=== PATIENT | female | born 1985 | race Two or more races ===

== ENCOUNTER 2024-06-09 15:07 | Inpatient (IN) | payer MEDICAID, SELFPAY ==
[2024-06-09 15:08] VITALS: BMI 29.8
[2024-06-09 15:53] VITALS: BP 130/75; PULSE 100; RESP 18; TEMP 36.9; O2SAT 98
--- NOTE | 2024-06-09 16:08 | XR_ITS ---
EXAMINATION: US venous doppler LE LT HISTORY: r/o dvt COMPARISON: None. FINDINGS: Dutton scale, color doppler, and spectral waveforms of the bilateral lower extremity veins. The imaged veins are unremarkable without evidence of internal thrombus. Spectral Doppler imaging demonstrates normal wave forms. Prominent left inguinal lymph nodes, not pathologically enlarged by imaging criteria with preservation normal fatty shawn. IMPRESSION: Negative for deep venous thrombosis.
--- NOTE | 2024-06-09 16:08 | XR_ITS ---
Examination: Foot, left, 3 views Technique: AP, oblique, lateral views foot, 3 views Date and time of exam: June 09, 2024 1730 hrs. Indications: Redness swelling and pain involving the foot this week Findings: Suspicious for cortical bone destruction ungual tuft tip distal phalanx first digit Soft tissue swelling No fracture Impression: Osteomyelitis ungual tuft tip distal phalanx first digit, consider MRI foot without contrast follow-up
--- NOTE | 2024-06-09 16:09 | PD.EDRME ---
Rapid Medical Screening Exam RME Arrival date/time: 06/09/24 15:07 39-year-old female presents emergency department today sent by PCP to rule osteomyelitis Chief Complaint: Wound/Laceration Vital signs: Vital Signs Temperature 98.4 F 06/09/24 15:53 Pulse Rate 100 06/09/24 15:53 Respiratory Rate 18 06/09/24 15:53 Blood Pressure 130/75 06/09/24 15:53 Pulse Oximetry (%) 98 06/09/24 15:53 Oxygen Delivery Method Room Air 06/09/24 15:53
[2024-06-09 16:42] LABS: Lactate (Lactic Acid) 1.5 mMol/L (0.4-2.0)
[2024-06-09 16:47] LABS: Basophils % (Auto) 0 % (0-2.5); Eosinophils # (Auto) 0.1 Thou/mm3 (0.0-0.5); Eosinophils % (Auto) 1 % (0-10); Hematocrit 26.8 % (36.0-46.0); Immature Granulocytes % (Auto) 0 % (0-0); Immature Granulocytes Auto 0.02 Thou/mm3 (0.00-0.00); Lymphocytes # (Auto) 1.8 Thou/mm3 (1.0-4.8); Lymphocytes % (Auto) 25 % (10-50); Mean Corpuscular HGB Conc 26.1 g/dl (31.0-37.0); Mean Corpuscular Hemoglobin 15.7 pg (25.0-35.0); Mean Corpuscular Volume 60 fL (80-100); Monocytes # (Auto) 0.3 Thou/mm3 (0.0-0.8); Monocytes % (Auto) 4 % (0-12); Neutrophils # (Auto) 5.1 Thou/mm3 (1.8-7.7); Neutrophils % (Auto) 70 % (37-80); Nucleated Red Blood Cell % 0 /100 WBC (0); Platelet Count 311 Thou/mm3 (140-440); RDW Standard Deviation 42.4 fL (36.4-46.3); Red Blood Count 4.46 Miln/mm3 (4.00-5.20); White Blood Count 7.4 Thou/mm3 (3.6-11.0)
[2024-06-09 16:58] LABS: Sed Rate (ESR) 63 mm/hr (0-20)
[2024-06-09 16:59] LABS: Prothrombin Time 10.6 Seconds (9.0-12.2)
[2024-06-09 17:02] LABS: HCG,Qualitative Serum Negative
[2024-06-09 17:08] LABS: Collection Type, Urine Clean Catch
[2024-06-09 17:12] LABS: Alanine Aminotransferase 9 U/L (10-49); Albumin, Serum 4.5 gm/dL (3.5-5.0); Albumin/Globulin Ratio 1.2 (1.2-2.2); Alkaline Phosphatase 107 U/L (46-116); Anion Gap 8 (7-16); Aspartate Amino Transferase < 10 U/L (0-34); BUN/Creatinine Ratio 17 Ratio (12-20); Bilirubin,Total 0.6 mg/dL (0.3-1.2); Blood Urea Nitrogen 10 mg/dL (9-23); C-Reactive Protein 4.1 mg/dL (0.0-0.9); Calcium 9.5 mg/dL (8.3-10.6); Calcium (Corrected) 9.5 mg/dL (8.5-10.1); Carbon Dioxide 24.4 mMol/L (20.0-31.0); Chloride 102 mMol/L (98-107); Creatinine (Component) 0.6 mg/dL (0.6-1.3); Estimated Creatinine Clearance 150.3 mL/min (>60); Globulin 3.8 gm/dL (2.3-3.5); Glucose 364 mg/dL (74-106); Glucose Estimated Average 240 mg/dL (80-131); Osmolality,Calculated 282 (275-295); Potassium 3.8 mMol/L (3.4-5.1); Procalcitonin 0.11 ng/ml (0.0-0.49); Sodium 134 mMol/L (136-145); Total Protein 8.3 gm/dL (5.7-8.2); eGFR > 60 See Note
[2024-06-09 17:37] LABS: Bilirubin,Urine Negative (Negative); Blood,Urine 2+ (Negative); Budding Yeast,Urine Present; Clarity,Urine Clear (Clear/Hazy); Color,Urine Lt-Yellow (Lt Yel-Yel); Culture Indicated,Urine Not Indicated; Glucose, Urine 4+ (Negative); Ketones,Urine 1+ (Negative); Leukocyte Esterase,Urine Negative (Negative); Nitrite,Urine Negative (Negative); Protein,Urine Negative (Neg - Trace); RBC,Urine 2 /hpf (0-3); Specific Gravity,Urine 1.037 (1.001-1.035); Squamous Epithelial Cell,Urine 1 /hpf (0-5); Urobilinogen,Urine Negative mg/dL (0.0-1.0); WBC,Urine < 1 /hpf (0-5)
[2024-06-09 18:01] LABS: Path Review Blood Smear Sent to Pathologist
[2024-06-09 18:53] VITALS: BP 133/76; PULSE 88; RESP 17; TEMP 37.3; O2SAT 100
[2024-06-09 21:24] LABS: Ferritin 2 ng/mL (7.3-270.7); Iron 13 mcg/dL (50-170); Percent Iron Saturation 2 % (20-55); Total Iron Binding Capacity 438 mcg/dL (250-425); Unsaturated Iron Binding 425 (225-295)
--- NOTE | 2024-06-09 21:47 | EDNOTE_ITS ---
ED Wound/Laceration-RME/HPI General Chief Complaint: Wound/Laceration Stated Complaint: SENT BY [facility] TO R/O OSTEOMYELITIS Time Seen by Provider: 06/09/24 22:06 Source: patient Arrival date/time: 06/09/24 15:07 Mode of arrival: ambulatory Limitations: no limitations RME / HPI RME / HPI narrative: 06/09/24 15:07 39-year-old female presents emergency department today sent by PCP to rule osteomyelitis. Dr. Lim?s Main ED Evaluation: 39-year-old female presents to the ED, referred by her PCP at [facility] for evaluation of a left foot wound to rule out osteomyelitis. Symptoms began three days ago, with worsening pain affecting her ability to walk. She describes the pain as severe, throbbing, and rated 10/10. Patient denies fevers. Related Data Previous Rx's ?Medication ?Instructions ?Recorded ibuprofen 600 mg tablet 600 mg PO Q6HR PRN PAIN #30 tabs 07/31/16 hydrocodone 5 mg-acetaminophen 325 1 tab PO Q8H PRN pa in #7 tabs 04/30/20 mg tablet (Dwarf) hydrocodone 5 mg-acetaminophen 325 1 tab PO Q8H PRN pa in #7 tabs 04/30/20 mg tablet (Dwarf) cyclobenzaprine 10 mg tablet 10 mg PO TID PRN muscle s pasm #30 01/29/21 tabs tramadol 50 mg tablet 50 mg PO TID PRN pain #21 ta bs 01/29/21 fluconazole 150 mg tablet 150 mg PO Q3D 2 doses #2 tab s 01/22/23 Allergies Allergy/AdvReac Type Severity Reaction Status Date / Time No Known Allergies Allergy Verified 06/09/24 15:08 Review of Systems Review of Systems Systems Reviewed: All systems reviewed, normal except as documented Past Medical History Past Medical History NEUROLOGIC: Negative Neurological Disorders or Seizures CARDIAC: Negative Cardiac Disorders or Congestive Heart Failure RESPIRATORY: Negative Chronic Obstructive Pulmonary Disease (COPD) GASTROINTESTINAL: Negative Gastrointestinal Disorders GENITOURINARY: Negative Genitourinary Disorders or Renal Disease REPRODUCTIVE: Positive Genital Herpes (doesn't take any meds) and Previous Pregnancies MUSCULOSKELETAL: Negative Musculoskeletal Disorders ENDOCRINE: Positive Diabetes Mellitus Type 1; Negative Diabetes Mellitus Type 2 HEMATOLOGIC: Negative Blood Disorders PSYCHO/SOCIAL: Positive Depression (doesn't remember name of prescribed med) and Depression (with both pregnancies) OTHER HISTORY: Negative Autoimmune Disease, Blood Transfusions, Blood Transfusion Reaction, Anesthesia Reactions, MRSA, Clostridium Difficile or Cancer Family History FAMILY HISTORY: Negative Family Psychiatric Problems, Family Respiratory Disorders, Family Cardiac Disorders, Family Gastrointestinal Problems, Family Cancer, Family Surgery or Family Anesthesia Reaction Surgical History SURGICAL: Positive Section; Negative Cardiac Surgery, Endocrine Surgery, Ear Surgery, Nephrectomy, Joint Replacement, Neurologic Surgery or Mastectomy Social History SMOKING STATUS: Never smoker SECOND HAND EXPOSURE: No ED Exam Narrative Physical exam: GENERAL: In general the patient is awake, interactive, in an emergency department gurney. HEAD/EYES/EARS/NOSE/THROAT: normo-cephalic, atraumatic, mucus membranes are moist. No cervical tenderness palpation midline. Supple neck. CARDIOVASCULAR: regular rate and regular rhythm, no murmurs, heart sounds are not distant, strong pulses in all four extremities that are equal and symmetric bilateral upper and lower extremities, normal capillary refill. CHEST/PULMONARY: normal chest rise and fall, good air movement, clear to auscultation bilaterally, normal inspiratory to expiratory ratios without evidence of respiratory distress. ABDOMEN: soft, not tender, no masses appreciated BACK: normal range of motion without pain. NEUROLOGICAL: cranio-facial features are symmetric, moves all four extremities equally without obvious limitations or weakness. EXTREMITY: first three digits of the left foot are swollen, primarily on the plantar side. 3x3 cm open lesion is present on the first toe. blisters are noted on the second and third toes, which are warm to the touch. erythema extending to the midfoot. lymphedema is also present. SKIN: warm, dry, well-perfused, no jaundice, no rash, no telangiectasias or petechia. PSYCH: calm, cooperative, no evidence of psychosis or agitation General Limitations: Present no limitations Course Quality Measures none Orders Category Date Time Status US venous doppler LE LT Stat Exams 06/09/24 16:08 Completed XR foot comp LT min 3V Stat Exams 06/09/24 16:08 Completed A1C [Glycohemoglobin w (eAG)] Stat Lab 06/09/24 16:28 Completed Blood Culture (Lab) Stat Lab 06/09/24 16:28 Received CBC Stat Lab 06/09/24 16:28 Completed CMP [Comprehensive Metabolic Panel] Stat Lab 06/09/24 16:28 Completed CRP [C-Reactive Protein] Stat Lab 06/09/24 16:28 Completed ESR [Sed Rate (ESR)] Stat Lab 06/09/24 16:28 Completed Ferritin Stat Lab 06/09/24 18:00 Completed HCG,Qualitative Serum Stat Lab 06/09/24 16:28 Completed Iron Panel Stat Lab 06/09/24 18:00 Completed Lactic Acid [Lactate (Lactic Acid)] Stat Lab 06/09/24 16:28 Completed PT [Prothrombin Time with INR] Stat Lab 06/09/24 16:28 Completed Path Review Blood Smear Stat Lab 06/09/24 16:28 Completed Procalcitonin Stat Lab 06/09/24 16:28 Completed Type and Screen Stat Lab 06/09/24 18:00 Completed UA, C/S IF [Urinalysis, C/S if Indicated] Stat Lab 06/09/24 16:55 Completed Insulin Regular Med 06/09/24 23:16 Discontinued 10 unit IV X1 ONE Potassium Chloride [K-Dur] Med 06/09/24 23:16 Discontinued 40 meq PO X1 ONE Vital Signs Vital signs: Vital Signs Temperature 98.4 F 06/09/24 15:53 Pulse Rate 100 06/09/24 15:53 Respiratory Rate 18 06/09/24 15:53 Blood Pressure 130/75 06/09/24 15:53 Pulse Oximetry (%) 98 06/09/24 15:53 Oxygen Delivery Method Room Air 06/09/24 15:53 Wound / Laceration MDM Narrative MDM Narrative:: 39-year-old female with history of diabetes type 2, with worsening left cellulitis with lymphangitis in the last 24 hours. Exam shows diabetic foot ulcer. Patient does not meet sepsis criteria at this time. Likely as early osteo based on x-ray however at this time the patient definitely has cellulitis of the first 3 toes with diabetic foot ulcer on the first digit with lymphangitis. Scribe Attestation: I, Kosta Hua, am scribing for and in the presence of Dr. Lim. Provider Notation: Although this document has been carefully reviewed, there may still be some phonetic and other typographical errors. These errors are purely grammatical due to imperfections in the software program and should not be construed in any way to compromise the substance of the patient's medical care during this visit. 2300: Hospitalist made aware of the patient?s HPI, PMHx, lab and/or radiology results. Discussed treatment plan. Accepts patient for admission. Scribe Attestation: I, Kosta Hua, am scribing for and in the presence of Dr. Lim. Patient data External records reviewed:: [facility] previous records Clinical information provided by:: patient Social determinants that could affect healthcare access:: none Patient has the following chronic illnesses:: see PMH, if any How is presenting disease/condition affected by chronic disease/condition?: uneffected by Evaluation data The following diagnostics were reviewed and interpreted by me:: lab results and radiology exam(s) Lab and/or radiology exams considered but not ordered:: na Interpretation Summary: I personally reviewed the radiology data and agree with the radiologist's interpretation. Examination: Foot, left, 3 views Technique: AP, oblique, lateral views foot, 3 views Date and time of exam: June 09, 2024 1730 hrs. Indications: Redness swelling and pain involving the foot this week Findings: Suspicious for cortical bone destruction ungual tuft tip distal phalanx first digit Soft tissue swelling No fracture Impression: Osteomyelitis ungual tuft tip distal phalanx first digit, consider MRI foot without contrast follow-up Dictated By: Etienne Martell MD EXAMINATION: US venous doppler LE LT HISTORY: r/o dvt COMPARISON: None. FINDINGS: Dutton scale, color doppler, and spectral waveforms of the bilateral lower extremity veins. The imaged veins are unremarkable without evidence of internal thrombus. Spectral Doppler imaging demonstrates normal wave forms. Prominent left inguinal lymph nodes, not pathologically enlarged by imaging criteria with preservation normal fatty shawn. IMPRESSION: Negative for deep venous thrombosis. Dictated By: Tomas Madison MD Medications / Prescriptions Medications or Prescriptions considered but not ordered:: na Medication administrations:: Medication Administration History Acetaminophen (Acetaminophen 325 Mg Tablet) 650 mg PO Q6H PRN PRN Reason: Fever >100 or pain 1-3 Stop: 07/09/24 23:24 Dextrose (Dextrose 50%-Water Inj 50 Ml Syringe) 25 ml IV Q15MIN PRN PRN Reason: BG 50-70 responsive npo pt Stop: 07/09/24 23:24 Dextrose (Dextrose 50%-Water Inj 50 Ml Syringe) 50 ml IV Q15MIN PRN PRN Reason: BG <50 OR BG <70 & pt unresponsive Stop: 07/09/24 23:24 Glucagon (Glucagon Inj 1 Mg Vial) 1 mg IM Q15MIN PRN PRN Reason: BG <70, and no IV access Cefepime HCl 2 gm/ Sodium (Chloride) 50 mls @ 100 mls/hr IV Q8HR [facility] Stop: 06/16/24 23:28 Doxycycline Hyclate 100 mg/ (Sodium Chloride) 100 mls @ 100 mls/hr IV BID [facility] Stop: 06/16/24 23:29 Doxycycline Hyclate 100 mg/ (Sodium Chloride) 100 mls @ 100 mls/hr IV X1 ONE Stop: 06/10/24 00:44 Last Admin: 06/09/24 23:54 Dose: 100 mls/hr Documented By: JANNA Sodium Chloride (Ns) 1,000 mls @ 999 mls/hr IV .Q1H1M ONE Stop: 06/10/24 00:50 Last Admin: 06/09/24 23:56 Dose: 999 mls/hr Documented By: JANNA Insulin Human Lispro (Insulin Lispro (Admelog) 1 Unit/0.01 Ml Unit) 0 unit SC AC [facility]; Protocol Stop: 07/10/24 07:29 Ondansetron HCl (Ondansetron Inj 2 Mg/Ml Inj 2 Ml) 4 mg IV Q6H PRN; Protocol PRN Reason: NAUSEA OR VOMITING Stop: 07/09/24 23:24 Discontinued Medications Cefepime HCl 2 gm/ Sodium (Chloride) 50 mls @ 100 mls/hr IV X1 ONE Stop: 06/10/24 00:14 Insulin Human Regular (Insulin Hum Regular 1 Unit/0.01 Ml (Per Unit)) 10 unit IV X1 ONE Stop: 06/09/24 23:17 Last Admin: 06/09/24 23:47 Dose: 10 unit Documented By: JANNA Co-signed By: NIURKA Potassium Chloride (Potassium Chloride 20 Meq Tabcr) 40 meq PO X1 ONE Stop: 06/09/24 23:17 Last Admin: 06/09/24 23:48 Dose: 40 meq Documented By: JANNA as above, if any Consultations Consultation(s) initiated? (list below): Yes Consultation #1 (Physician, Specialty, Details): see narrative Diagnosis Wound Differential Diagnosis: abscess and other (foot ulcer, celllulitis, osteomyelitis) Most likely diagnosis given after review of the tests above:: Diabetes, Cellulitis, Diabetic foot ulcer Admission Indicated Admission indicated?: indicated Admission Request Was there a request for admission?: Yes Admission Attestation Admission request attestation: Discussed case with [] from Hospitalist service regarding admission. Discussed patients ED course, exam findings, labs, and radiology results. The Hospitalist [agrees,declines] to accept the patient for admission. Resident made aware that they will need to consult Dr. Rowland during the day tomorrow for consult, if needed. Disposition Plan Disposition Plan: Admit Discharge Plan Plan Patient Disposition: Admit Acute Care w/in Hospital Patient condition on transfer: Stable Problem List Clinical Impression: Diabetes, Cellulitis, Diabetic foot ulcer, Lymphangitis, Iron deficiency anemia
[2024-06-09 23:08] VITALS: BP 144/83; PULSE 102; RESP 18; TEMP 36.8; O2SAT 100
--- NOTE | 2024-06-09 23:33 | ESHP_ITS ---
<Statement entered by Saloni Melara MD - 06/11/24 05:43> I reviewed above note and agree with findings and plans. I have also personally examined the patient with medicine team and went over assessment and plan with medical team including buyer intern and resident physician. Documentation for date of: 06/09/24 HPI History of Present Illness History of present illness: Daysi is a 39 y/o female with PMHx of non-insulin dependent type II DM, HLD and depression who comes in for an evaulation of L foot pain, and swelling with no associated fever or chills. Patient reports is the first time that is happening. She reports that this swelling and pain has been going on for a week and has more located in her first couple of toes. She says that she noticed it while changing her sock. She says that she takes Ozempic and metformin for her diabetes, however she does not take Ozempic consistently because it gives her nausea and vomiting. She denies any chest pain, shortness of breath, nausea, vomiting, diarrhea currently. She says that she was diagnosed with diabetes mellitus when she was 23 years old. She denies being hospitalized in the past. she takes her medicines as prescribed, however she says she takes Zoloft inconsistently because it does not like the way it makes her feel. No other complaints at this time. ED course: Patient arrived to the ED with a temperature of 98.4, heart rate 100, respiratory rate 18, blood pressure 1 3/75, saturate 98% room air. Patient was worked and was found to have a sodium of 134, potassium 3.8, bicarb 24, BUN/creatinine of 10 and 0.6 respectively, glucose 264, white count 7.4, hemoglobin 7, ESR 63, CRP 4.1. Urinalysis showed +4 glucose, negative for leukocyte esterase or nitrates. Foot x-ray was done which showed osteomyelitis of the tip distal phalanx. seen and the medicine was consulted patient was made to the floors. PMHx: As above Surgical Hx: 3 C-sections Allergies: No known allergies Medicines: Ozempic (inconsistently), metformin 1000 mg twice daily, Zoloft (inconsistently) Family history: Family history significant for mother being on dialysis due to longstanding diabetes, and also diabetic retinopathy. Grandmother had a stroke. Social history: Born in [place], moved to [place] in 2006. Has worked in the [employer] ever since. Has 3 kids, single mom. Eats whatever she wants but mainly makes all her meals at home and eats at home and does not eat out. She eats a lot of tortillas, asada, chicken. 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 Smokes weed occasionally, no other smoking history. Has an occasional beer once a week. Review of Systems Review of Systems Narrative Review of Systems: Constitutional: No fever, chills, fatigue, weakness, weight loss HEENT: No eye pain, vision loss, ear pain, hearing loss, dysphagia, Cardiovascular: No chest pain, palpitations, edema, pain with walking Respiratory: No cough, shortness of breath, wheezing GI: No NVD, abdominal pain, constipation, blood in stool, loss of appetite, heartburn Extremities: + L foot swelling MSK: No back pain, joint pain, joint swelling, + L foot pain Neuro: No dizziness, numbness, weakness, headaches, seizures, tremors Psych: No anxiety, depression Exam Vital Signs Temp Pulse Resp BP Pulse Ox O2 Del Method 98.3 F 102 H 18 144/83 H 100 Room Air 06/09/24 23:08 06/09/24 23:08 06/09/24 23:08 06/09/24 23:08 06/09/24 23:08 06/09/24 23:08 Narrative Exam General: AAOx3, NAD, pleasant nearly obese female HEENT: Dry mucous membranes, conjunctiva clear, EOMI, PERRLA, Cardiovascular: S1, S2, radial pulses +2 bilat, RRR, patient near sternal notch Pulmonary: CTAB bilat no cough, no wheezing GI: No tenderness to light or deep palpitation, no guarding, rigidity, rebound tenderness or distension Extremities: No presence of trace or pitting edema in lower extremities bilaterally, dorsalis pedis pulses +2 bilaterally MSK: R foot ulceration on first toe with open wound, subcutaneous fat visible. Some possible blisters seen on second toe and 3rd toe Neuro: AAOx3, no focal motor or sensory deficits in the UE or LE bilat Psych: Good judgement, thought and behavior. Cooperative Results: Labs 06/09/24 16:28 06/09/24 16:28 Labs: Short CBC 03/09/25 Range/Units 16:28 WBC 7.4 (3.6-11.0) Thou/mm3 Hgb 7.0 L (12.0-16.0) g/dL Hct 26.8 L (36.0-46.0) % Plt Count 311 (140-440) Thou/mm3 BMP 06/09/24 16:28 Sodium 134 L Potassium 3.8 Chloride 102 Carbon Dioxide 24.4 BUN 10 Creatinine 0.6 Glucose 364 H Calcium 9.5 Liver Function 06/09/24 Range/Units 16:28 Total Bilirubin 0.6 (0.3-1.2) mg/dL AST < 10 (0-34) U/L ALT 9 L (10-49) U/L Alkaline Phosphatase 107 (46-116) U/L Albumin 4.5 (3.5-5.0) gm/dL Urine 06/09/24 Range/Units 16:55 Urine Color Lt-Yellow (Lt Yel-Yel) Urine Clarity Clear (Clear/Hazy) Urine pH 6.0 (5.0-7.0) Ur Specific [place] 1.037 H (1.001-1.035) Urine Protein Negative (Neg - Trace) Urine Glucose (UA) 4+ A (Negative) Quality Measures Quality Measures none Medications Home Medications and Allergies Allergies Allergy/AdvReac Type Severity Reaction Status Date / Time No Known Allergies Allergy Verified 06/09/24 15:08 Visit Medications Acetaminophen (Acetaminophen 325 Mg Tablet) 650 mg PO Q6H PRN PRN Reason: Fever >100 or pain 1-3 Stop: 07/09/24 23:24 Dextrose (Dextrose 50%-Water Inj 50 Ml Syringe) 25 ml IV Q15MIN PRN PRN Reason: BG 50-70 responsive npo pt Stop: 07/09/24 23:24 Dextrose (Dextrose 50%-Water Inj 50 Ml Syringe) 50 ml IV Q15MIN PRN PRN Reason: BG <50 OR BG <70 & pt unresponsive Stop: 07/09/24 23:24 Glucagon (Glucagon Inj 1 Mg Vial) 1 mg IM Q15MIN PRN PRN Reason: BG <70, and no IV access Cefepime HCl 2 gm/ Sodium (Chloride) 50 mls @ 100 mls/hr IV Q8HR [facility] Stop: 06/16/24 23:28 Doxycycline Hyclate 100 mg/ (Sodium Chloride) 100 mls @ 100 mls/hr IV BID [facility] Stop: 06/16/24 23:29 Insulin Human Lispro (Insulin Lispro (Admelog) 1 Unit/0.01 Ml Unit) 0 unit SC AC [facility]; Protocol Stop: 07/10/24 07:29 Ondansetron HCl (Ondansetron Inj 2 Mg/Ml Inj 2 Ml) 4 mg IV Q6H PRN; Protocol PRN Reason: NAUSEA OR VOMITING Stop: 07/09/24 23:24 Discontinued Medications Insulin Human Regular (Insulin Hum Regular 1 Unit/0.01 Ml (Per Unit)) 10 unit IV X1 ONE Stop: 06/09/24 23:17 Potassium Chloride (Potassium Chloride 20 Meq Tabcr) 40 meq PO X1 ONE Stop: 06/09/24 23:17 Assessment & Plan Plan Assessment Daysi is a 39 y/o female with PMHx of non-insulin dependent type II DM, HLD and depression who is admitted for diabetic foot ulcer and osteomyelitis #Diabetic foot ulcer #Osteomyelitis Foot ulcer likely secondary to uncontrolled diabetes Fingerstick in ER was 420 Anion gap of 8 A1c of 10 X-ray shows some osteomyelitis and distal first phalanx Will need further imaging for further workup ESR CRP elevated, 63 and 4.1 respectively Patient will need pseudomonal coverage Patient will likely need new regimen for diabetes management on discharge as patient has uncontrolled diabetes and is not compliant with current regimen Plan: ? General Surgery consulted, appreciate recs ? CT left foot with contrast ? Follow-up blood cultures ? Follow-up MRSA nares ? Cefepime 2 g IV every 12 hours ? Doxycycline 100 mg twice daily IV #[id number] type II diabetes mellitus Give 10 units of IV insulin in ER in addition to potassium load up Patient will likely need new regimen for diabetes management on discharge as patient has uncontrolled diabetes and is not compliant with current regimen +4 glucose in urine Plan: ? Sliding scale insulin ? Hypoglycemic protocol in place ? Blood sugar checks with meals ? Diabetic education ? Dietitian referral #Iron deficiency anemia MCV 60, Hgb 7 Iron 13 TIBC ~400s Ferritin 2 Iron is low in addition to iron stores and TIBC is high likely related to iron deficiency anemia Hold on giving blood transfusion at this point and will follow-up a.m. blood draw Patient would be a candidate for IV iron, however at this point will not give iron due to setting of infection Patient used to take iron a couple of times a day however stopped because of constipation Patient denies having any dark bowel movements Plan: ? Continue trend with CBC ? Follow-up peripheral blood smear ? Type and screen #Hematuria +2 blood on urine Plan: ? May need to repeat UA or follow-up outpatient #Depression Takes Zoloft inconsistently Patient educated on needing to take SSRIs consistently to show max benefit Patient does not want Zoloft at this time and will talk with PCP for further management Plan: ?Will hold on resuming home Zoloft #Health Maintenance Disposition: MedSurg DVT prophylaxis: SCDs GI prophylaxis: Protonix Diet: Carb low CODE STATUS: Full Patient seen and care discussed with my attending physician, Dr. Kelton Gould, PGY-1
[2024-06-09] MEDS: INSULIN HUM REGULAR 1 UNIT/0.01 ML (PER UNIT) 10 UNIT IV (23:47)
[2024-06-09] MEDS: POTASSIUM CHLORIDE 20 mEq TABCR 40 MEQ PO (23:48)
[2024-06-09] MEDS: DOXYCYCLINE INJ 100 MG in SODIUM CHLORIDE 0.9% (POP) 100 ML IV (23:54)
[2024-06-09] MEDS: SODIUM CHLORIDE 0.9% 1000 ML 1,000 ML 999 ML IV (23:56)
[2024-06-10] VITALS (15 sets, daily range): BP systolic 112–155; BP diastolic 61–98; PULSE 84–97; RESP 16–20; TEMP 35.8–37.1; O2SAT 95–99; BMI 30.2
--- NOTE | 2024-06-10 00:34 | XR_ITS ---
Examination: CT left foot, without contrast. 2-D sagittal reconstructions. 2-D coronal reconstructions. 3-D reconstructions. Date and time of exam:June 16, 2024 1923 hrs. Indications: Redness swelling and pain involving the foot this week CTDI: vol (mGy):3.32 DLP: (mGycm):114 Technique: Multiple 1.25 mm axial sections of the left foot have been obtained. 2-D sagittal and coronal reconstructions have been obtained. 3-D reconstructions have been obtained. Low dose protocols were performed. One or more of the following dose reduction techniques were used; automated exposure control, adjustment of the mA and/or KV according to patient size, use of iterative reconstruction technique. Findings: Soft tissue edema surrounding the foot Cortical bone destruction involving the ungual tuft tip distal phalanx first digit No fracture No foreign body Impression: Early osteomyelitis ungual tuft tip distal phalanx third digit
[2024-06-10] MEDS: CEFEPIME INJ 2 GM in SODIUM CHLORIDE 0.9% (Popper) 50 ML IV ×4 (00:55→21:54)
[2024-06-10 02:56] LABS: Amphetamine/Methamp Scrn,U Negative (Negative); Barbiturate Screen,Urine Negative (Negative); Benzodiazepines Screen,Urine Negative (Negative); Benzoylecgonine Screen, Ur Negative (Negative); Fentanyl Screen,Urine Negative (Negative); Opiate Screen,Urine Negative (Negative); THC Screen,Urine Negative (Negative)
[2024-06-10] MEDS: HYDROcodone/APAP 5/325 TABLET 1 TAB PO ×3 (03:42→22:08)
[2024-06-10 06:10] LABS: Basophils % (Auto) 0 % (0-2.5); Eosinophils # (Auto) 0.1 Thou/mm3 (0.0-0.5); Eosinophils % (Auto) 1 % (0-10); Hematocrit 21.6 % (36.0-46.0); Immature Granulocytes % (Auto) 0 % (0-0); Immature Granulocytes Auto 0.01 Thou/mm3 (0.00-0.00); Lymphocytes % (Auto) 34 % (10-50); Mean Corpuscular HGB Conc 26.4 g/dl (31.0-37.0); Mean Corpuscular Hemoglobin 16.2 pg (25.0-35.0); Mean Corpuscular Volume 61 fL (80-100); Monocytes # (Auto) 0.3 Thou/mm3 (0.0-0.8); Monocytes % (Auto) 5 % (0-12); Neutrophils # (Auto) 3.6 Thou/mm3 (1.8-7.7); Neutrophils % (Auto) 60 % (37-80); Nucleated Red Blood Cell % 0 /100 WBC (0); Platelet Count 263 Thou/mm3 (140-440); RDW Standard Deviation 43.3 fL (36.4-46.3); Red Blood Count 3.52 Miln/mm3 (4.00-5.20)
[2024-06-10 06:17] LABS: Partial Thromboplastin Time 24.4 Seconds (22.0-36.0); Prothrombin Time 11.4 Seconds (9.0-12.2)
[2024-06-10 06:30] LABS: Hemoglobin 5.7 g/dL (12.0-16.0)
[2024-06-10 07:11] LABS: Alanine Aminotransferase 9 U/L (10-49); Albumin, Serum 3.6 gm/dL (3.5-5.0); Albumin/Globulin Ratio 1.1 (1.2-2.2); Alkaline Phosphatase 68 U/L (46-116); Anion Gap 7 (7-16); Aspartate Amino Transferase < 10 U/L (0-34); BUN/Creatinine Ratio 16 Ratio (12-20); Bilirubin,Total 0.6 mg/dL (0.3-1.2); Blood Urea Nitrogen 8 mg/dL (9-23); Calcium 8.3 mg/dL (8.3-10.6); Calcium (Corrected) 8.6 mg/dL (8.5-10.1); Carbon Dioxide 24.3 mMol/L (20.0-31.0); Cardiac Risk Estimate 3.5 RATIO (3.7-5.6); Chloride 106 mMol/L (98-107); Cholesterol 97 mg/dL (132-200); Creatinine (Component) 0.5 mg/dL (0.6-1.3); Estimated Creatinine Clearance 181.3 mL/min (>60); Globulin 3.2 gm/dL (2.3-3.5); Glucose 309 mg/dL (74-106); HDL Cholesterol 28 mg/dL (40-60); LDL Cholesterol,Calculated 26 mg/dL (0-130); Magnesium 1.7 mg/dL (1.6-2.6); Osmolality,Calculated 284 (275-295); Phosphorous 3.1 mg/dL (2.4-5.1); Sodium 137 mMol/L (136-145); Thyroid Stimulating Hormone 1.55 uIU/mL (0.55-4.78); Total Protein 6.8 gm/dL (5.7-8.2); Triglycerides 217 mg/dL (30-150); eGFR > 60 See Note
[2024-06-10] MEDS: INSULIN LISPRO (AdmeLOG) 1 UNIT/0.01 ML UNIT SC ×3 (08:16→17:12)
[2024-06-10] MEDS: Magnesium Sulfate 4 GM Ivpb 4 GM/50 ML BAG IV (09:41)
[2024-06-10] MEDS: PANTOPRAZOLE INJ 40 MG VIAL IV (09:42)
[2024-06-10] MEDS: DOXYCYCLINE INJ 100 MG in SODIUM CHLORIDE 0.9% (POP) 100 ML IV (09:42)
--- NOTE | 2024-06-10 10:46 | XR_ITS ---
Examination: Pelvic ultrasound, transabdominal, complete Technique: Transabdominal ultrasound of the pelvis performed using grayscale imaging Date and time of exam: June 10, 2024 1223 hrs. Indications: Irregular heavy menses beginning several years ago Findings: Uterus 10.9 cm endometrial stripe 0.5 cm No uterine mass or intrauterine gestation Right ovary obscured by bowel gas Left ovary 4.2 cm arterial flow Impression: No uterine mass or intrauterine gestation
[2024-06-10] MEDS: Vancomycin Inj 1,000 MG, Vancomycin Inj 750 MG in SODIUM CHLORIDE 0.9% 500 ML 500 ML 171.429 MG IV (11:18)
[2024-06-10] MEDS: INSULIN LISPRO (AdmeLOG) 1 UNIT/0.01 ML UNIT 5 UNIT SC ×3 (12:06→17:13)
[2024-06-10 13:40] LABS: Creatinine MALB Rnd Ur 32 mg/dL (30-125); Microalbumin Creat Ratio 63 mg/gCrea (<30); Microalbumin, Random Urine 20 mg/L (0-300)
--- NOTE | 2024-06-10 14:25 | PC.WOUND ---
Assisted Dr. Rowland with bedside excision and debridment of left toes. Pt tolerated well, no bleeding after procedure. Orders received for wound care and [facility] as outpatient, nursing to reiterate adaptic dressings daily. Pt can be discharged when medically cleared per Dr. Rowland. See Wound RN notes.
--- NOTE | 2024-06-10 14:48 | PC.SS ---
Daysi Aguirre is a 39-year-old female admitted to Med-Surg for Osteomyelitis. SS conducted bedside contact with the patient to complete initial assessment and to discuss discharge planning.? Patient confirmed demographic information. Patient identifies her brother Dino Aguirre [phone] as her surrogate decision maker. Patient resides at home with kids. Pt states she is able to complete all ADL?s independently, no need for any source of DME. Pts PCP is Dr. Trujillo at [facility] and her pharmacy of choice is [facility]. DC options discussed, pt wishes to return home. Pts fam will provide transportation upon DC. No further intervention required at this time, social staff worker would be available to address any further concerns. DC Plan: Home Contact: BrotherDino [phone] PCP: Ronnie
--- NOTE | 2024-06-10 15:37 | ESCONSULT_ITS ---
HPI Consult details History of present illness: 39F with HLD, DMII (A1c 10) here for evaluation of foot pain. Pt reports she has noted swelling for the past week but then she developed pain, was seen at [facility] where she was advised to seek care in ER. Pt underwent foot xray showing osteomyelitis of the distal phalanx of the left foot digit PMH: HLD, DMII, anemia possibly related to menorrhagia PSHx: Csections Meds: ozempic, metformin Allergies: NKDA Social hx: Nonsmoker Review of Systems Review of Systems ROS Unobtainable: All systems reviewed & no additional complaints except as documented Meds Home Medications and Allergies Allergies Allergy/AdvReac Type Severity Reaction Status Date / Time No Known Allergies Allergy Verified 06/09/24 15:08 Exam Vital Signs Temp Pulse Resp BP Pulse Ox O2 Del Method 97.3 F 90 20 125/88 H 97 Room Air 06/10/24 14:45 06/10/24 14:45 06/10/24 14:45 06/10/24 14:45 06/10/24 14:32 06/10/24 12:00 Constitutional Constitutional: no acute distress Routine Respiratory Exam Respiratory: Present no resp distress Routine Extremities Exam Comments: Left foot warm, minimal erythema at the dorsum of foot which has apparently receded from previous markings. On the plantar surface of the 1st-3rd toes there are bullae, with some necrotic skin of the 1st and 2nd digits but no necrotic skin of the 3rd digit Results Results: Laboratory Laboratory results: results reviewed Results: Imaging Imaging narrative: Foot xray, venous doppler reviewed Assessment & Plan Plan 39F with HLD, DMII and anemia presenting with osteomyelitis of the left first toe with associated bullae. I explained that I can debride these wounds at bedside, and enumerated risks including pain, bleeding and worsening infection requiring toe amputations. Pt expressed understanding and agrees to proceed
--- NOTE | 2024-06-10 15:42 | ESOP_ITS ---
Procedures - Surgery Abscess I/D Site: foot Side (if applicable): left Sedation/analgesia: other ([place]) Technique: other (Excisional debridement of left first and second toe necrotic skin to level of subcutaneous tissue using scissors and a #15 blade. The bulla of the 3rd toe was incised with a #15 blade and drained clear fluid) Irrigation: No Packing used?: none Complications: other (Pt tolerated procedure well)
--- NOTE | 2024-06-10 16:09 | ESCONSULT_ITS ---
ELECTRIC POWER LINE REPAIRER HPI Data of Consult Requesting Physician: Rehan Izquierdo DO Primary Care Provider: Abelardo Trujillo MD Consult Narrative History of present illness: Daysi is a 39 y/o female with PMHx of non-insulin dependent type II DM, HLD, depression and menorrhagia with current hospitalization related to osteomyelitis of the left first toe, now s/p bedside debridement by Dr. Rowland this afternoon. She had initial Hgb of 7 yesterday afternoon, but this morning it fell to 5.7. Patient then endorsed that she is day 4 of her menses and her menses are very heavy normally. She has received 2u of pRBCs, follow up Hgb 8.4. She notes that she had menarche age 12 but then stopped having cycles until she turned 25 when she became sexually active. She states periods have been very heavy since 25. She has bleeding for 6 days, day 3 is heaviest where she will soak through a heavy pad in less than an hour. She passes large clots and has episodes of flooding. Has not seen OBGYN since soon after her 4 year old was born. She notes having an abnormal pap smear (and long-standing hx of HPV/abnormal paps) at that time and was supposed to have colposcopy procedure but did not. 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 PMHx: As above Surgical Hx: section x3 (with bilateral tubal ligation during 3rd ), left first toe debridement Allergies: NKDA Medicines: Ozempic (inconsistently), metformin 1000 mg twice daily, Zoloft (inconsistently) Family history: Family history significant for mother being on dialysis due to longstanding diabetes, and also diabetic retinopathy. Grandmother had a stroke. Social history: Born in [place], moved to [place] in 2006. Has worked in the [employer] ever since. Has 3 kids, single mom. 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 Smokes weed occasionally, no other smoking history. Has an occasional beer once a week. cc:: cc: Rehan Izquierdo DO Review of Systems Review of Systems Narrative Review of Systems: Review of Systems Systems Reviewed: All systems reviewed, normal except as documented Constitutional Constitutional: Denies body ache(s), Denies chills, Denies fever(s) and Denies headache(s) ENT Ears, Nose, Mouth, and Throat: Denies headache(s) and Denies vertigo Cardiovascular Cardiovascular: Denies chest pain, Denies palpitations, Denies dyspnea and Denies syncope Respiratory Respiratory: Denies cough, Denies dyspnea Gastrointestinal Gastrointestinal: Denies nausea and Denies vomiting Neurologic Neurologic: Denies convulsions, Denies headache(s), Denies other visual disturbances, Denies syncope and Denies vertigo Meds Home Medications and Allergies Allergies Allergy/AdvReac Type Severity Reaction Status Date / Time No Known Allergies Allergy Verified 06/09/24 15:08 Exam - ELECTRIC POWER LINE REPAIRER Vital Signs Temp Pulse Resp BP Pulse Ox O2 Del Method 97.3 F 90 20 125/88 H 97 Room Air 06/10/24 14:45 06/10/24 14:45 06/10/24 14:45 06/10/24 14:45 06/10/24 14:32 06/10/24 12:00 ELECTRIC POWER LINE REPAIRER - Results Labs 06/10/24 18:52 06/10/24 04:58 Labs: Short CBC 06/09/24 06/10/24 Range/Units 16:28 04:58 WBC 7.4 6.0 (3.6-11.0) Thou/mm3 Hgb 7.0 L 5.7 L* (12.0-16.0) g/dL Hct 26.8 L 21.6 L* (36.0-46.0) % Plt Count 311 263 D (140-440) Thou/mm3 BMP 06/09/24 06/10/24 16:28 04:58 Sodium 134 L 137 Potassium 3.8 4.0 Chloride 102 106 Carbon Dioxide 24.4 24.3 BUN 10 8 L Creatinine 0.6 0.5 L Glucose 364 H 309 H D Calcium 9.5 8.3 Liver Function 06/09/24 06/10/24 Range/Units 16:28 04:58 Total Bilirubin 0.6 0.6 (0.3-1.2) mg/dL AST < 10 < 10 (0-34) U/L ALT 9 L 9 L (10-49) U/L Alkaline Phosphatase 107 68 D (46-116) U/L Albumin 4.5 3.6 D (3.5-5.0) gm/dL Urine 06/09/24 Range/Units 16:55 Urine Color Lt-Yellow (Lt Yel-Yel) Urine Clarity Clear (Clear/Hazy) Urine pH 6.0 (5.0-7.0) Ur Specific [place] 1.037 H (1.001-1.035) Urine Protein Negative (Neg - Trace) Urine Glucose (UA) 4+ A (Negative) Impressions Impression: Patient: DAYSI PAIGE Attending Dr: Rehan Izquierdo DO Ordering Physician: Kenton Mc MD Date of Service: 06/10/24 Procedure(s): US pelvic complete Accession Number(s): [id number] cc: Abelardo Trujillo MD; Etienne Martell MD; Kenton Mc MD~ Examination: Pelvic ultrasound, transabdominal, complete Technique: Transabdominal ultrasound of the pelvis performed using grayscale imaging Date and time of exam: June 10, 2024 1223 hrs. Indications: Irregular heavy menses beginning several years ago Findings: Uterus 10.9 cm endometrial stripe 0.5 cm No uterine mass or intrauterine gestation Right ovary obscured by bowel gas Left ovary 4.2 cm arterial flow Impression: No uterine mass or intrauterine gestation Assessment and Plan Assessment and plan (1) Menorrhagia: Status: Acute Assessment and plan: Daysi is a 39 y/o female with PMHx of non-insulin dependent type II DM, HLD, depression and menorrhagia with current hospitalization related to osteomyelitis of the left first toe, now s/p bedside debridement by Dr. Rowland this afternoon. She had initial Hgb of 7 yesterday afternoon, but this morning it fell to 5.7. Patient then endorsed that she is day 4 of her menses and her menses are very heavy normally. She has received 2u of pRBCs, follow up Hgb 8.4. Normal pelvic ultrasound. Hx of abnormal pap smears/HPV with no appropriate follow up 3-4 years ago. Recommendations: -I had a long discussion with Daysi regarding the importance of following up with OBGYN outpatient for further workup of her menorrhagia with endometrial biopsy. Also with pap smear to follow up prior abnormal paps. Specifically discussed embx and pap are needed to ensure she does not have cervical or uterine pre-/cancer. I discussed with her options for treatment of menorrhagia after workup is completed such as OCP, Mirena IUD, endometrial ablation and hysterectomy. I discussed that she needs to seek treatment of her menorrhagia SANIYA or else she will likely end up needing more blood transfusions in the future. I provided her with Dr. Carly Rowe's office number to make an appointment to establish care: [phone]. -Discussed if she does want to pursue hysterectomy in the future, she needs to have really good glycemic control so she will have good healing -For now, Rx Lysteda (oral TXA) 1.3g PO TID for up to 5 days during monthly menstruation with 3 month supply to get her to her [employer] appt -Answered all questions to her apparent satisfaction (2) Iron deficiency anemia: Status: Acute (3) Diabetic foot ulcer: Status: Acute (4) Diabetes: Status: Acute (1) Menorrhagia Qualifiers: Menorrhagia type: with regular cycle Qualified Code(s): N92.0 - Excessive and frequent menstruation with regular cycle (2) Iron deficiency anemia Qualifiers: Iron deficiency anemia type: chronic blood loss Qualified Code(s): D50.0 - Iron deficiency anemia secondary to blood loss (chronic) (3) Diabetic foot ulcer Qualifiers: Diabetes mellitus type: type 2 Diabetic foot ulcer location: toe Laterality: left Non-pressure ulcer stage: with bone involvement without evidence of necrosis Qualified Code(s): E11.621 - Type 2 diabetes mellitus with foot ulcer; L97.526 - Non-pressure chronic ulcer of other part of left foot with bone involvement without evidence of necrosis (4) Diabetes Qualifiers: Diabetes mellitus complication detail: with foot ulcer Diabetes mellitus complication status: with skin complications Diabetes mellitus equipment operator intermodal yard insulin use: without assisted use Diabetes mellitus type: type 2 Qualified Code(s): E11.621 - Type 2 diabetes mellitus with foot ulcer; L97.509 - Non- pressure chronic ulcer of other part of unspecified foot with unspecified severity
--- NOTE | 2024-06-10 17:12 | ESPR_ITS ---
<Statement entered by Reinier Powell MD - 06/10/24 18:20> Patient was seen and examined by me personally. I agree with most of the assessment and plan as discussed with the internal grinder set up operator physician, and my attending, Dr. Izquierdo. Patient is a 39-year-old female with T2DM, HLD, depression who was admitted for diabetic foot ulcer and osteomyelitis of left foot, as seen on x-ray. ESR and CRP are also elevated. Patient was started on IV antibiotics (currently on vancomycin and cefepime). Additionally she was found to have a hemoglobin of 7, which decreased to 5.7 on 06/10 morning. 2 units PRBC were ordered and transfused. Pending posttransfusion H&H. Acute blood loss anemia likely secondary to menorrhagia as patient is currently on her menstrual cycle and endorses heavy cycles. Pelvic ultrasound was ordered and did not show a uterine mass or intrauterine gestation, endometrial stripe 0.5 cm. CATARACT LENS GENERATOR consulted, appreciate recommendations. Patient started on Lantus and lispro for tight glycemic control 140?180. Will calculate ASCVD and patient to likely start statin on discharge. At bedside, patient was counseled on the importance of regulating her blood sugars and preventing further foot infections. Reinier Powell MD, PGY-3 Documentation for date of: 06/10/24 Subjective Subjective Interval history: Patient is an overnight admit. Patient is seen and examined at bedside this morning. Patient's repeat hemoglobin is below 6 and consent is obtained for transfusion risks are explained to the patient and patient is agreeable. Patient stated for the past 10 years she has been experiencing heavy menstrual cycle and has noticed large clots larger than her hand and often has to wear a diaper during menstruation. Currently patient is day 4 of the menstrual cycle. Patient stated she has been very inconsistent with taking her diabetes and depression medication because it causes nausea. Patient states that ever since she has been diagnosed many years ago she always had uncontrolled diabetes and the only time her A1c was below 7 was when she was with her child 10 years ago. Patient noticed the injury on her foot a week ago which progressively worsened and she noticed it became erythematous which prompted her to come to the ED. Exam Vital Signs Temp Pulse Resp BP Pulse Ox O2 Del Method 97.3 F 90 20 125/88 H 97 Room Air 06/10/24 14:45 06/10/24 14:45 06/10/24 14:45 06/10/24 14:45 06/10/24 14:32 06/10/24 12:00 Narrative Exam GENERAL: A&Ox3 . obese pleasant female, does appear to be in acute pain NEURO: no focal neurological deficits HEENT: Atraumatic, Normocephalic. mucous membranes moist. Eyes open, symmetrical, & clear HEART: Normal Heart Sounds LUNGS: Clear to auscultation with no wheezing or crackles. ABDOMEN: soft, non-distended, non-tender, bowel sounds heard, no guarding or rebound tenderness SKIN: No Rash or ecchymoses EXTREMITIES: No edema, tenderness, able to move all 4 extremities, pedal pulses palpated, left foot in a bandage, dressing appears to be dry and clean Objective Labs 06/11/24 05:05 06/11/24 05:05 Labs: Laboratory Results - last 24 hr 06/09/24 06/09/24 06/09/24 16:28 16:55 18:00 WBC RBC Hgb Hct MCV MCH MCHC RDW Std Deviation Plt Count Neut % (Auto) Lymph % (Auto) Dale % (Auto) Eos % (Auto) Baso % (Auto) Neut # (Auto) Lymph # (Auto) Dale # (Auto) Eos # (Auto) Baso # (Auto) Immature Gran # (Auto) Absolute Nucleated RBC Immature Gran % Nucleated RBC % Smear Path Review Sent to Pathologist PT INR APTT Sodium 134 L Potassium 3.8 Chloride 102 Carbon Dioxide 24.4 Anion Gap 8 BUN 10 Creatinine 0.6 Estim Creat Clear Calc 150.3 eGFR > 60 BUN/Creatinine Ratio [address] Glu mg/dL 240 H Hemoglobin A1c 10.0 H Calculated Osmolality 282 Calcium 9.5 Corrected Calcium 9.5 Phosphorus Magnesium Iron 13 L TIBC 438 H Iron Saturation 2 L Unsat Iron Binding 425 H Ferritin 2 L Total Bilirubin 0.6 AST < 10 ALT 9 L Alkaline Phosphatase 107 C-Reactive Prot, Quant 4.1 H Total Protein 8.3 H Albumin 4.5 Globulin 3.8 H Albumin/Globulin Ratio 1.2 Triglycerides Cholesterol LDL Cholesterol, Calc HDL Cholesterol Cholesterol/HDL Ratio Procalcitonin 0.11 TSH Ur Collection Type Clean Catch Urine Color Lt-Yellow Urine Clarity Clear Urine pH 6.0 Ur Specific [place] 1.037 H Urine Protein Negative Urine Glucose (UA) 4+ A Urine Ketones 1+ A Urine Blood 2+ A Urine Nitrite Negative Urine Bilirubin Negative Urine Urobilinogen (Auto) Negative Ur Leukocyte Esterase Negative Urine RBC 2 Urine WBC < 1 Ur Squamous Epith Cells 1 Urine Bacteria None Urine Yeast (Budding) Present A Ur Culture Indicated? Not Indicated Ur Random Microalbumin U Creat (Microalbumin) Microalb/Creat Ratio Urine Opiates Screen Negative Urine Fentanyl Screen Negative Ur Barbiturates Screen Negative U Amphetamin/Meth Scrn Negative U Benzodiazepines Scrn Negative U Cocaine Metab Screen Negative U Marijuana (THC) Screen Negative Blood Type O Positive Antibody Screen NEGATIVE Crossmatch See Detail Blood Bank Wristband ID Yes 06/10/24 06/10/24 04:58 12:50 WBC 6.0 RBC 3.52 L Hgb 5.7 L* Hct 21.6 L* MCV 61 L MCH 16.2 L MCHC 26.4 L RDW Std Deviation 43.3 Plt Count 263 D Neut % (Auto) 60 Lymph % (Auto) 34 [place] % (Auto) 5 Eos % (Auto) 1 Baso % (Auto) 0 Neut # (Auto) 3.6 Lymph # (Auto) 2.0 Dale # (Auto) 0.3 Eos # (Auto) 0.1 Baso # (Auto) 0.0 Immature Gran # (Auto) 0.01 H Absolute Nucleated RBC 0.00 Immature Gran % 0 Nucleated RBC % 0 Smear Path Review PT 11.4 INR 1.0 APTT 24.4 Sodium 137 Potassium 4.0 Chloride 106 Carbon Dioxide 24.3 Anion Gap 7 BUN 8 L Creatinine 0.5 L Estim Creat Clear Calc 181.3 eGFR > 60 BUN/Creatinine Ratio [address] Glu mg/dL Hemoglobin A1c Calculated Osmolality 284 Calcium 8.3 Corrected Calcium 8.6 Phosphorus 3.1 Magnesium 1.7 Iron TIBC Iron Saturation Unsat Iron Binding Ferritin Total Bilirubin 0.6 AST < 10 ALT 9 L Alkaline Phosphatase 68 D C-Reactive Prot, Quant Total Protein 6.8 Albumin 3.6 D Globulin 3.2 Albumin/Globulin Ratio 1.1 L Triglycerides 217 H Cholesterol 97 L LDL Cholesterol, Calc 26 HDL Cholesterol 28 L Cholesterol/HDL Ratio 3.5 L Procalcitonin TSH 1.55 Ur Collection Type Urine Color Urine Clarity Urine pH Ur Specific [place] Urine Protein Urine Glucose (UA) Urine Ketones Urine Blood Urine Nitrite Urine Bilirubin Urine Urobilinogen (Auto) Ur Leukocyte Esterase Urine RBC Urine WBC Ur Squamous Epith Cells Urine Bacteria Urine Yeast (Budding) Ur Culture Indicated? Ur Random Microalbumin 20 U Creat (Microalbumin) 32 Microalb/Creat Ratio 63 H Urine Opiates Screen Urine Fentanyl Screen Ur Barbiturates Screen U Amphetamin/Meth Scrn U Benzodiazepines Scrn U Cocaine Metab Screen U Marijuana (THC) Screen Blood Type Antibody Screen Crossmatch Blood Bank Wristband ID Quality Measures Quality Measures none Assessment & Plan Assessment Current Active Medications: Generic Name Dose Route Start Last Admin Trade Name Freq PRN Reason Stop Dose Admin Acetaminophen 650 mg 06/09/24 23:25 Acetaminophen 325 Mg Tablet PO 07/09/24 23:24 Q6H PRN Fever >100 or pain 1-3 Hydrocodone Bitart/Acetaminophen 1 tab 06/10/24 00:36 06/10/24 13:32 Hydrocodone/Apap 5/325 Tablet PO 06/15/24 00:35 1 tab Q6HR PRN Administration pain 4-7 Dextrose 25 ml 06/09/24 23:25 Dextrose 50%-Water Inj 50 Ml Syringe IV 07/09/24 23:24 Q15MIN PRN BG 50-70 responsive npo pt Dextrose 50 ml 06/09/24 23:25 Dextrose 50%-Water Inj 50 Ml Syringe IV 07/09/24 23:24 Q15MIN PRN BG <50 OR BG <70 & pt unresponsive Gabapentin 100 mg 06/10/24 04:11 Gabapentin 100 Mg Capsule PO 07/10/24 20:59 HS PRN neuropathic pain Glucagon 1 mg 06/09/24 23:25 Glucagon Inj 1 Mg Vial IM Q15MIN PRN BG <70, and no IV access Cefepime HCl 2 gm/ Sodium 50 mls @ 100 mls/hr 06/10/24 06:00 06/10/24 13:33 Chloride IV 06/17/24 05:59 100 mls/hr Q8HR HILDA Administration Vancomycin/Sodium Chloride 200 mls @ 120 mls/hr 06/10/24 22:00 Vancomycin/Ns 1 Gm Ivpb IV 06/17/24 21:59 BID@1000,2200 [facility] Protocol Insulin Glargine 18 unit 06/10/24 21:00 Insulin Glargine (Lantus) 5 Unit/0.05 Ml (Per 5 Units) SC 07/10/24 20:59 HS HILDA Insulin Human Lispro 0 unit 06/10/24 08:31 06/10/24 12:04 Insulin Lispro (Admelog) 1 Unit/0.01 Ml Unit SC 07/10/24 07:29 5 unit AC HILDA Administration Protocol Insulin Human Lispro 5 unit 06/10/24 12:00 06/10/24 12:06 Insulin Lispro (Admelog) 1 Unit/0.01 Ml Unit SC 07/10/24 11:59 5 unit TIDWM HILDA Administration Ondansetron HCl 4 mg 06/09/24 23:25 Ondansetron Inj 2 Mg/Ml Inj 2 Ml IV 07/09/24 23:24 Q6H PRN NAUSEA OR VOMITING Protocol Pantoprazole Sodium 40 mg 06/10/24 09:00 06/10/24 09:42 Pantoprazole Inj 40 Mg Vial IV 07/10/24 08:59 40 mg QDAY HILDA Administration Pharmacy Consult 1 each 06/10/24 10:45 Vancomycin Pharmacy To Dose 1 Each Each IV 07/10/24 10:44 QDAY PRN PROTOCOL Plan Ms. Aguirre is a 39 y/o female with PMHx of non-insulin dependent type II DM, HLD and depression presented to the ED complaining of left foot swelling and erythema. Patient is admitted for diabetic foot ulcer and osteomyelitis #Acute anemia - blood loss secondary to menorrhgia #Iron deficiency anemia -On admission MCV 60, Hgb 7 -> repeat Hgb 5.7 Hct 21.6 -Iron panel - Iron 13 TIBC ~400s Ferritin 2 -Iron is low in addition to iron stores and TIBC is high likely related to iron deficiency anemia -Patient would be a candidate for IV iron, however at this point will not give iron due to setting of infection -Patient used to take iron a couple of times a day however stopped because of constipation -Patient denies having any dark bowel movements -Pt states she has had menorrhgia for the last 10 years -Pelvic ulttrasound No uterine mass or intrauterine gestation Plan: -Continue trend with CBC -Follow-up peripheral blood smear -Type and screen -transufuse 2 units pRBC -post transfusion H&H -consult to OBGYN #Diabetic foot ulcer #Osteomyelitis -Foot ulcer likely secondary to uncontrolled diabetes -On admission Fingerstick in ER was 420, A1c of 10 -Anion gap of 8, ESR CRP elevated, 63 and 4.1 respectively -Patient will likely need new regimen for diabetes management on discharge as patient has uncontrolled diabetes and is not compliant with current regimen -X-ray shows some osteomyelitis and distal first phalanx Plan: -General Surgery consulted, appreciate recs -Blood cultures and MRSA nares pending -Cefepime 2 g IV BID 06/10- -vancomycin pharmacy dose - 06/10- #Hyperglycermia #Gph-yeaqbtp-btxoxcavp type II diabetes mellitus, uncontrolled -Give 10 units of IV insulin in ER in addition to potassium load up -Patient will likely need new regimen for diabetes management on discharge as patient has uncontrolled diabetes and is not compliant with current regimen +4 glucose in urine Plan: -Sliding scale insulin -Hypoglycemic protocol in place -Blood sugar checks with meals -Diabetic education -Dietitian referral -Glargine 18unit HS and lispro 5 units with each meal #Hematuria +2 blood on urine Plan: -May need to repeat UA or follow-up outpatient #Depression Takes Zoloft inconsistently Patient educated on needing to take SSRIs consistently to show max benefit Patient does not want Zoloft at this time and will talk with PCP for further management Plan: -Will hold on resuming home Zoloft #Health Maintenance Disposition: MedSurg DVT prophylaxis: SCDs GI prophylaxis: Protonix Diet: Carb low CODE STATUS: Full Assessment and plan discussed with my senior resident Dr. Powell & attending physician Dr. Timbo Thomas (PGY-1)- Internal medicine resident Attending Provider Attestation/Addendum I have discussed and was present for the essential components of the history, physical examination, diagnosis, and treatment plan with the resident. I agree with the patient's care as documented by the resident and amended herein by me. Ray Izquierdo DO. Although this document has been carefully reviewed, there may still be some phonetic and other typographical errors. These errors are purely grammatical due to imperfections in the software program and should not be construed in any way to compromise the substance of the patient's medical care during this visit.
[2024-06-10 19:09] LABS: Hematocrit 29.1 % (36.0-46.0); Hemoglobin 8.4 g/dL (12.0-16.0)
[2024-06-10] MEDS: VANCOMYCIN/NS 1 GM IVPB 200 ML IV (21:54)
[2024-06-10] MEDS: INSULIN GLARGINE (Lantus) 5 UNIT/0.05 ML (PER 5 UNITS) 18 UNIT SC (21:55)
--- NOTE | 2024-06-11 01:40 | PC.NURSE ---
PT. notified The RN that she did not want to be bothered with vitals , just wanted to rest , MARJ Carmona is aware
[2024-06-11 04:00] VITALS: BP 120/77; PULSE 85; RESP 18; TEMP 36.2; O2SAT 96
[2024-06-11] MEDS: CEFEPIME INJ 2 GM in SODIUM CHLORIDE 0.9% (Popper) 50 ML IV ×2 (05:26→13:17)
[2024-06-11 05:53] LABS: Basophils % (Auto) 0 % (0-2.5); Eosinophils # (Auto) 0.1 Thou/mm3 (0.0-0.5); Eosinophils % (Auto) 2 % (0-10); Hematocrit 30.8 % (36.0-46.0); Immature Granulocytes % (Auto) 0 % (0-0); Immature Granulocytes Auto 0.02 Thou/mm3 (0.00-0.00); Lymphocytes # (Auto) 1.4 Thou/mm3 (1.0-4.8); Lymphocytes % (Auto) 24 % (10-50); Mean Corpuscular HGB Conc 28.2 g/dl (31.0-37.0); Mean Corpuscular Hemoglobin 18.7 pg (25.0-35.0); Mean Corpuscular Volume 66 fL (80-100); Monocytes # (Auto) 0.4 Thou/mm3 (0.0-0.8); Monocytes % (Auto) 6 % (0-12); Neutrophils # (Auto) 3.8 Thou/mm3 (1.8-7.7); Neutrophils % (Auto) 66 % (37-80); Nucleated Red Blood Cell % 0 /100 WBC (0); Platelet Count 237 Thou/mm3 (140-440); RDW Standard Deviation 60.2 fL (36.4-46.3); Red Blood Count 4.66 Miln/mm3 (4.00-5.20); White Blood Count 5.7 Thou/mm3 (3.6-11.0)
[2024-06-11 06:00] LABS: Hemoglobin 8.7 g/dL (12.0-16.0)
[2024-06-11 06:54] LABS: Alanine Aminotransferase 10 U/L (10-49); Albumin, Serum 3.8 gm/dL (3.5-5.0); Albumin/Globulin Ratio 1.2 (1.2-2.2); Alkaline Phosphatase 74 U/L (46-116); Anion Gap 8 (7-16); Aspartate Amino Transferase 11 U/L (0-34); BUN/Creatinine Ratio 15 Ratio (12-20); Bilirubin,Total 0.7 mg/dL (0.3-1.2); Blood Urea Nitrogen 9 mg/dL (9-23); Calcium 8.6 mg/dL (8.3-10.6); Calcium (Corrected) 8.8 mg/dL (8.5-10.1); Carbon Dioxide 20.9 mMol/L (20.0-31.0); Chloride 105 mMol/L (98-107); Creatinine (Component) 0.6 mg/dL (0.6-1.3); Estimated Creatinine Clearance 148.4 mL/min (>60); Globulin 3.3 gm/dL (2.3-3.5); Glucose 281 mg/dL (74-106); Magnesium 1.9 mg/dL (1.6-2.6); Osmolality,Calculated 276 (275-295); Phosphorous 2.7 mg/dL (2.4-5.1); Sodium 134 mMol/L (136-145); Total Protein 7.1 gm/dL (5.7-8.2); eGFR > 60 See Note
[2024-06-11] MEDS: INSULIN LISPRO (AdmeLOG) 1 UNIT/0.01 ML UNIT SC ×2 (07:53→11:53)
[2024-06-11] MEDS: INSULIN LISPRO (AdmeLOG) 1 UNIT/0.01 ML UNIT 5 UNIT SC ×4 (07:54→13:52)
[2024-06-11 08:00] VITALS: BP 111/76; PULSE 86; RESP 18; TEMP 36.2; O2SAT 97
[2024-06-11] MEDS: PANTOPRAZOLE INJ 40 MG VIAL IV (09:19)
[2024-06-11] MEDS: VANCOMYCIN/NS 1 GM IVPB 200 ML IV (09:19)
--- NOTE | 2024-06-11 10:50 | CHAP ---
Patient was visited by a Spiritual Care volunteer on 06/11/2024 between 0900 and 0943 and received comfort, encouragement, and/or prayer.
[2024-06-11] MEDS: HYDROcodone/APAP 5/325 TABLET 1 TAB PO (10:52)
[2024-06-11 12:00] VITALS: BP 133/72; PULSE 90; RESP 18; TEMP 36.1; O2SAT 98
[2024-06-11 16:00] VITALS: BP 128/78; PULSE 86; RESP 18; TEMP 35.8; O2SAT 99
--- NOTE | 2024-06-11 16:05 | ESDS_ITS ---
Planned Discharge Date 06/11/24 DS: Providers Provider Date of admission: 06/09/24 23:20 Primary care physician: Abelardo Trujillo MD Admitting Provider: Saloni Melara MD Attending Provider on Admission: Rehan Izquierdo DO Consults: 06/09/24 23:28 Referral Registered Dietitian Routine Comment: Referral Registered Dietitian Urgent Comment: Referral Wound Care Routine Comment: 06/10/24 00:35 Consult to General Surgery Routine Comment: possible OM, first phalanx L foot Consulting Provider: Kelly Rowland 06/10/24 03:33 Referral Marixa Routine Comment: Health Equity Referral - Knowledge Deficit Routine Comment: Positive screening for knowledge deficit needs. Health Equity Referral - Transportation Routine Comment: Positive screening for transportation needs. 06/10/24 10:44 Consult to Gynecology Routine Comment: Menorhagia Consulting Provider: Katy Marte 06/10/24 17:08 Referral OP Wound Healing Dept Routine Comment: Instructions: Left foot great to 3rd toe DM trauma from footwear Attending Provider on DC: Kenton Mc MD Discharging Provider: Kenton Mc MD DS: Diagnosis Problem List Completed Was Problem List Reviewed/Reconciled?: Yes Hospital Course Hospital Course Hospital course: DC summary: Ms. Aguirre is a 39 y/o female with PMHx of non-insulin dependent type II DM, HLD and depression presented to the ED complaining of left foot swelling and erythema. Patient is admitted for diabetic foot ulcer and osteomyelitis and acute blood loss anemia. On admission, patient was found to have low iron stores and hemoglobin dropped from 7->5.6. 2 units PRBC were transfused and hemoglobin improved. Patient reported that she had been having menorrhagia for last 10 years. Denied any dark bowel movement. [facility] was consulted. Pelvic ultrasound showed no uterine mass or intrauterine gestation. P[employer] specialist recommended to use tranexamic acid 1300 mg 3 times daily to 5 days during men struation and follow-up as outpatient for Pap smear to follow-up prior abnormal Paps. Additionally, discussion regarding OCP, Mirena IUD, endometrial ablation and hysterectomy were also performed by [employer] specialist if patient does not want to pursue with hysterectomy. Of note, patient does have a history of abnormal Pap smear/HPV with no appropriate follow-up 3 to 4 years ago. For patient's osteomyelitis of right foot surgeon, Dr. Simmons was consulted who performed excision debridement of left first and second toe necrotic skin to the level of subcutaneous tissue. Pain management and IV antibiotics/cefepime 2 g twice daily and vancomycin were given. Patient also had uncontrolled blood sugars with A1c 10.0. Basal bolus regimen was given. Patient was noticed to have hematuria therefore was recommended to follow-up outpatient urology. Home medications were reconciled. Patient was medically stable to be discharged today after managing blood sugars. Patient be discharged to home. We recommend the patient to continue Augmentin 875 mg twice daily and ciprofloxacin 500 mg twice daily for total 6 weeks up to July 22, 2024 to complete course for osteomyelitis. Continue taking all home medications as prescribed. Continue wound care outpatient. Discharge instructions: Continue taking Augmentin 875 mg twice daily and ciprofloxacin 500 mg twice daily for total 6 weeks until July 22, 2024 Take ferrous sulfate 325 mg every other day Take Lantus 25 units twice daily for your type 2 diabetes Take tranexamic acid 1300 mg 3 times daily up to 5 days during monthly menstruation Continue home medications as prescribed Follow-up with PCP as outpatient within 2 weeks Follow-up with [facility] [facility] after getting referral from PCP as outpatient In case of emergency, call 911 or come back to the ED Follow up at [facility], [address] [place] [address]. Call [phone] for appointment. Wound care to left foot (great, 2nd and 3rd toes): May shower than change dressing. Monitor feet daily for any changes in skin condition. -Wash hands with soap and water. -Cleanse wound with wound cleanser spray. Pat dry with gauze. -Wash hands again -Apply a piece of adaptic large enough to cover wound to each toe. Layer with dry gauze and secure with gauze roll. Change once a day and as needed for falling off. Ambulate using heel of left foot until wounds are healed, keep foot clean, dry and covered. If active bleeding occurs, apply tight dressing and return to MD or ER. ? Notify primary doctor or return to Emergency Room if any of the following: ? Fever above 100.6? F. ? Increased pain ? Increase swelling ? Red streaks around your wound ? Drainage becomes foul smelling or changes color ? The wound is larger or deeper ? The wound looks dried out or dark ? Bleeding that does not stop with holding pressure #DC instructions: #Problem list #Acute anemia - blood loss secondary to menorrhgia #Iron deficiency anemia #Diabetic foot ulcer #Uncontrolled type 2 diabetes #Osteomyelitis #Hyperglycermia #Hematuria #Depression Patient was seen and discussed with attending physician, Dr. Timbo Mc MD, PGY 2 Time Spent with Patient Time attestation: Total time spent providing and/or coordinating discharge services: Exam Vital Signs Temp Pulse Resp BP Pulse Ox O2 Del Method 97.0 F 90 18 133/72 H 98 Room Air 06/11/24 12:00 06/11/24 12:00 06/11/24 12:00 06/11/24 12:00 06/11/24 12:00 06/11/24 12:00 Narrative Exam GENERAL: A&Ox3 . obese pleasant female, does appear to be in acute pain NEURO: no focal neurological deficits HEENT: Atraumatic, Normocephalic. mucous membranes moist. Eyes open, symmetrical, & clear HEART: Normal Heart Sounds LUNGS: Clear to auscultation with no wheezing or crackles. ABDOMEN: soft, non-distended, non-tender, bowel sounds heard, no guarding or rebound tenderness SKIN: No Rash or ecchymoses EXTREMITIES: No edema, tenderness, able to move all 4 extremities, pedal pulses palpated, left foot in a bandage, dressing appears to be dry and clean Discharge Plan Plan Patient Disposition: HOME (Self Care) Patient condition on transfer: Stable Care Plan Goals: Continue taking Augmentin 875 mg twice daily and ciprofloxacin 500 mg twice daily for total 6 weeks until July 22, 2024 Take ferrous sulfate 325 mg every other day Take Lantus 25 units twice daily for your type 2 diabetes Take tranexamic acid 1300 mg 3 times daily up to 5 days during monthly menstruation Continue home medications as prescribed Follow-up with PCP as outpatient within 2 weeks Follow-up with P[employer] [employer] [facility] after getting referral from PCP as outpatient In case of emergency, call 911 or come back to the ED Follow up at [facility], [address] [place] [address]. Call [phone] for appointment. Wound care to left foot (great, 2nd and 3rd toes): May shower than change dressing. Monitor feet daily for any changes in skin condition. -Wash hands with soap and water. -Cleanse wound with wound cleanser spray. Pat dry with gauze. -Wash hands again -Apply a piece of adaptic large enough to cover wound to each toe. Layer with dr juan jose evans and secure with gauze roll. Change once a day and as needed for falling off. Ambulate using heel of left foot until wounds are healed, keep foot clean, dry and covered. If active bleeding occurs, apply tight dressing and return to MD or ER. ? Notify primary doctor or return to Emergency Room if any of the following: ? Fever above 100.6? F. ? Increased pain ? Increase swelling ? Red streaks around your wound ? Drainage becomes foul smelling or changes color ? The wound is larger or deeper ? The wound looks dried out or dark ? Bleeding that does not stop with holding pressure Prescriptions/Referrals Prescriptions/Med Rec: New tranexamic acid 650 mg tablet 1,300 mg PO TID 5 Days Qty: 90 0RF Rx Instructions: Take 1300mg by mouth three times daily for up to 5 days during monthly menstruation ferrous sulfate 325 mg (65 mg iron) tablet 325 mg PO Q OTHER DAY Qty: 90 0RF (DME) pen needle, diabetic [Ultra-Thin II Ins Pen Gal[place]] 29 gauge x 1/2 needle See Rx Instructions .Route Qty: 100 0RF Rx Instructions: As directed amoxicillin-pot clavulanate 875-125 mg tablet 1 tab PO BID 42 Days Qty: 84 0RF ciprofloxacin HCl 500 mg tablet 500 mg PO BID 42 Days Qty: 84 0RF insulin glargine [Lantus Solostar U-100 Insulin] 100 unit/mL (3 mL) insulin pen 25 unit subcut BID Qty: 15 3RF Continued hydrocodone-acetaminophen [[place]] 5-325 mg tablet 1 tab PO Q8H MDD 3 PRN (Reason: pain) Qty: 7 0RF cyclobenzaprine 10 mg tablet 10 mg PO TID PRN (Reason: muscle spasm) Qty: 30 0RF tramadol 50 mg tablet 50 mg PO TID PRN (Reason: pain) Qty: 21 0RF Discontinued ibuprofen 600 MG tablet 600 mg PO Q6HR PRN (Reason: PAIN) Qty: 30 0RF hydrocodone-acetaminophen [[place]] 5-325 mg tablet 1 tab PO Q8H MDD 3 PRN (Reason: pain) Qty: 7 0RF fluconazole 150 mg tablet 150 mg PO Q3D Qty: 2 0RF Referrals: Abelardo Trujillo MD [Primary Care Provider] - Katy Marte MD [Physician] - Patient/Caregiver Discharge Instructions Education Materials: How to Check Your Blood Sugar, Insulin How to Use and Where to Inject, Diabetes: Meal Planning, Diabetes Carbs Fats Protein, Insulin Injection Steps, Insulin Pen Clear Insulin Steps Print Language: Mongolian Stand Alone Forms: Jenna Award Info., Patient Portal Info Letter Discharge Order Discharge Orders: Discharge (Routine); Ordered 06/11/24 Ordered By: Valeriano Thomas Quality Discharge Quality Measures VTE prophylaxis MD Attestestation MD Attestation I have discussed and was present for the essential components of the discharge history, physical examination, diagnosis, and discharge treatment plan with the resident. I agree with the patient's discharge care as documented by the resident and amended herein by me. Ray Izquierdo DO. The patient understood all discharge instructions, all questions were answered satisfactorily. The patient was instructed to return to the Emergency Department is symptoms worsened or persisted. Patient was stable, afebrile, tolerating p.o. intake and ambulatory at time of discharge. Although this document has been carefully reviewed, there may still be some phonetic and other typographical errors. These errors are purely grammatical due to imperfections in the software program and should not be construed in any way to compromise the substance of the patient's medical care during this visit.
== END 2024-06-11 18:00 | disposition home or self-care (01) | DRG 344 ==
LOC: SERX 23:22 → SERHOLD 23:52 → S3NX 06-10 02:49
PROVIDERS: Nurse Practitioner Primary Care; Admitting Provider Internal Medicine; Emergency Provider Emergency Medicine; PCP Family Medicine; Visit Provider Student in an Organized Health Care Education/Training Program
DX: E11.69 Type 2 diabetes mellitus with other specified complication (principal); E11.621 Type 2 diabetes mellitus with foot ulcer; M86.8X7 Other osteomyelitis, ankle and foot; L97.519 Non-pressure chronic ulcer of other part of right foot with unspecified severity; E11.65 Type 2 diabetes mellitus with hyperglycemia; D62 Acute posthemorrhagic anemia; E11.52 Type 2 diabetes mellitus with diabetic peripheral angiopathy with gangrene; N92.0 Excessive and frequent menstruation with regular cycle; R23.8 Other skin changes; E78.5 Hyperlipidemia, unspecified; F32.A Depression, unspecified; R31.9 Hematuria, unspecified; T43.226A Underdosing of selective serotonin reuptake inhibitors, initial encounter; Z91.148 Patient's other noncompliance with medication regimen for other reason; E66.9 Obesity, unspecified; Z79.4 Long term (current) use of insulin; Z68.30 Body mass index [BMI] 30.0-30.9, adult; Z98.51 Tubal ligation status
CPT/HCPCS: 36415; 73630; 73701; 76856; 80053; 80061; 80202; 80307; 81001; 82043; 82570; 82728; 83036; 83540; 83550; 83605; 83735; 84100; 84145; 84443; 84703; 85014; 85018; 85025; 85610; 85652; 85730; 86140; 86850; 86900; 86901; 86923; 87040; 87081; 93971; 96365; 96367; 99285; A4649; J0692; J1815; J2470; J3370; J3371; J3475; J3490; J7030; J7040; J7050; P9016; Q9967; A9270

== ENCOUNTER → 2024-06-18 | Outpatient (CLI) | payer MEDICAID, SELFPAY | END | disposition home or self-care (01) | LOC: SWHD 13:49 | PROVIDERS: Visit Provider Student in an Organized Health Care Education/Training Program | DX: E11.621 Type 2 diabetes mellitus with foot ulcer (principal); L97.522 Non-pressure chronic ulcer of other part of left foot with fat layer exposed; D64.89 Other specified anemias; E66.9 Obesity, unspecified; M86.8X7 Other osteomyelitis, ankle and foot | CPT/HCPCS: 11042; 99213; A9270; G0463 ==

== ENCOUNTER → 2024-06-25 | Outpatient (CLI) | payer MEDICAID, SELFPAY | END | disposition home or self-care (01) | LOC: SWHD 14:02 | PROVIDERS: PCP Family Medicine; Referring Provider Family Medicine; Visit Provider Student in an Organized Health Care Education/Training Program | DX: E11.621 Type 2 diabetes mellitus with foot ulcer (principal); L97.522 Non-pressure chronic ulcer of other part of left foot with fat layer exposed; D64.89 Other specified anemias; E66.9 Obesity, unspecified; M86.8X7 Other osteomyelitis, ankle and foot | CPT/HCPCS: 11042; A9270 ==

== ENCOUNTER → 2024-07-02 | Outpatient (CLI) | payer MEDICAID, SELFPAY | END | disposition home or self-care (01) | LOC: SWHD 14:24 | PROVIDERS: PCP Family Medicine; Referring Provider Family Medicine; Visit Provider Student in an Organized Health Care Education/Training Program | DX: E11.621 Type 2 diabetes mellitus with foot ulcer (principal); L97.522 Non-pressure chronic ulcer of other part of left foot with fat layer exposed; D64.89 Other specified anemias; E66.9 Obesity, unspecified; M86.8X7 Other osteomyelitis, ankle and foot | CPT/HCPCS: 11042; A9270 ==

== ENCOUNTER → 2024-07-09 | Outpatient (CLI) | payer MEDICAID, SELFPAY | END | disposition home or self-care (01) | PROVIDERS: PCP Family Medicine; Referring Provider Family Medicine; Visit Provider Student in an Organized Health Care Education/Training Program | DX: E11.621 Type 2 diabetes mellitus with foot ulcer (principal); L97.522 Non-pressure chronic ulcer of other part of left foot with fat layer exposed; D64.89 Other specified anemias; E66.9 Obesity, unspecified; M86.8X7 Other osteomyelitis, ankle and foot | CPT/HCPCS: 97597; A9270 ==

== ENCOUNTER → 2024-07-18 | Outpatient (CLI) | payer MEDICAID, SELFPAY | END | disposition home or self-care (01) | LOC: SWHD 07:54 | PROVIDERS: PCP Family Medicine; Referring Provider Family Medicine; Visit Provider Student in an Organized Health Care Education/Training Program | DX: I96 Gangrene, not elsewhere classified (principal); E11.621 Type 2 diabetes mellitus with foot ulcer; L97.528 Non-pressure chronic ulcer of other part of left foot with other specified severity; D64.89 Other specified anemias; E66.9 Obesity, unspecified; M86.8X7 Other osteomyelitis, ankle and foot | CPT/HCPCS: 97597; A9270 ==

== ENCOUNTER → 2024-07-23 | Outpatient (CLI) | payer MEDICAID, SELFPAY | END | disposition home or self-care (01) | LOC: SWHD 14:19 | PROVIDERS: PCP Family Medicine; Referring Provider Family Medicine; Visit Provider Surgery | DX: E11.621 Type 2 diabetes mellitus with foot ulcer (principal); L97.522 Non-pressure chronic ulcer of other part of left foot with fat layer exposed; D64.89 Other specified anemias; E66.9 Obesity, unspecified; M86.8X7 Other osteomyelitis, ankle and foot | CPT/HCPCS: 99213; A9270; G0463 ==

== ENCOUNTER → 2024-07-30 | Outpatient (CLI) | payer MEDICAID, SELFPAY | END | disposition home or self-care (01) | LOC: SWHD 14:07 | PROVIDERS: PCP Family Medicine; Referring Provider Family Medicine; Visit Provider Student in an Organized Health Care Education/Training Program | DX: E11.621 Type 2 diabetes mellitus with foot ulcer (principal); L97.522 Non-pressure chronic ulcer of other part of left foot with fat layer exposed; D64.89 Other specified anemias; E66.9 Obesity, unspecified; M86.8X7 Other osteomyelitis, ankle and foot | CPT/HCPCS: 97597; A9270 ==

== ENCOUNTER → 2024-08-06 | Outpatient (CLI) | payer MEDICAID, SELFPAY | END | disposition home or self-care (01) | LOC: SWHD 14:17 | PROVIDERS: PCP Family Medicine; Referring Provider Family Medicine; Visit Provider Student in an Organized Health Care Education/Training Program | DX: I96 Gangrene, not elsewhere classified (principal); E11.621 Type 2 diabetes mellitus with foot ulcer; L97.522 Non-pressure chronic ulcer of other part of left foot with fat layer exposed; D64.89 Other specified anemias; E66.9 Obesity, unspecified; M86.8X7 Other osteomyelitis, ankle and foot | CPT/HCPCS: 99213; G0463 ==

== ENCOUNTER → 2024-09-03 | Outpatient (CLI) | payer MEDICAID, SELFPAY | END | disposition home or self-care (01) | LOC: SWHD 14:25 | PROVIDERS: PCP Family Medicine; Referring Provider Family Medicine; Visit Provider Student in an Organized Health Care Education/Training Program | DX: I96 Gangrene, not elsewhere classified (principal); E11.621 Type 2 diabetes mellitus with foot ulcer; L97.522 Non-pressure chronic ulcer of other part of left foot with fat layer exposed; D64.89 Other specified anemias; E66.9 Obesity, unspecified; M86.8X7 Other osteomyelitis, ankle and foot | CPT/HCPCS: 99212; G0463 ==